=== PATIENT | male | born 1930 | race Caucasian/White ===

== ENCOUNTER 2018-01-14 09:03 | Emergency (ER) | payer MEDICARE, BC ==
--- NOTE | 2018-01-14 09:15 | EDM.PDOC ---
ED HPI GENERAL MEDICAL PROBLEM - General Chief Complaint: Syncope Stated Complaint: [facility] Time Seen by Provider: 01/14/18 09:05 Source of Information: Reports: Patient, EMS, Old Records History Limitations: Reports: No Limitations - History of Present Illness INITIAL COMMENTS - FREE TEXT/NARRATIVE: 87 yo male had a syncopal spell this morning and family called 911. EMS got there and while there patient had another spell while monitored that showed bradycardia to the 30's and hypotension. Fredy has had syncopal spells in the past, apparently these bradycardic spells were not caught on a monitor with these prior attacks. Without tx today's episode has arrived and he is here for evaluation. Family and patient state that prior to the attack today he was sitting in a chair and developed some nausea and was not sure if he was going to vomit or have diarrhea. He went into the bathroom and while sitting on the toilet passed out. 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: Reports: Other (see below) (none) - Related Data Allergies Allergy/AdvReac Type Severity Reaction Status Date / Time No Known Allergies Allergy Verified 01/14/18 09:16 Home Meds: Home Meds ALPRAZolam [Alprazolam] 1 mg PO DAILY 01/14/18 [History] Albuterol Sulfate [Proair Hfa] 8.5 gm IH Q6HR 01/14/18 [History] Aspirin [Adult Low Dose Aspirin EC] 81 mg PO DAILY 01/14/18 [History] Brimonidine/Timolol [Combigan 0.2%/0.5% Ophth Soln] 1 drop TOP BID 01/14/18 [ History] Finasteride 5 mg PO DAILY 01/14/18 [History] Fluticasone Propionate [Flonase] 2 sprays NS DAILY 01/14/18 [History] Loratadine [Claritin] 10 mg PO DAILY 01/14/18 [History] QUEtiapine Fumarate [Quetiapine Fumarate] 75 mg PO BEDTIME 01/14/18 [History] Ubidecarenone [Coenzyme Q-10] 100 mg PO BID 01/14/18 [History] ED ROS GENERAL - Review of Systems Review Of Systems: See Below Constitutional: Reports: Weakness HEENT: Reports: No Symptoms Respiratory: Reports: No Symptoms Cardiovascular: Reports: Blood Pressure Problem (low during episode), Syncope. Denies: Chest Pain GI/Abdominal: Reports: No Symptoms : Reports: No Symptoms Musculoskeletal: Reports: No Symptoms Skin: Reports: No Symptoms Neurological: Reports: Syncope - Physical Exam Exam: See Below Exam Limited By: No Limitations General Appearance: Alert, WD/WN, No Apparent Distress Eye Exam: Bilateral Eye: Normal Inspection Ears: Normal External Exam, Hearing Loss, Other (hearing aids) Nose: Normal Inspection, Normal Mucosa, No Blood Throat/Mouth: Normal Inspection, Normal Lips, Normal Oropharynx, Normal Voice, No Airway Compromise Head Exam: Atraumatic, Normocephalic Neck: Normal Inspection, Supple, Non-Tender Respiratory/Chest: No Respiratory Distress, Lungs Clear, Normal Breath Sounds, No Accessory Muscle Use Cardiovascular: Regular Rate, Rhythm, No Edema GI/Abdominal: Normal Bowel Sounds, Soft, Non-Tender, No Distention Neuro Exam (Abbreviated): Alert, Oriented, CN II-XII Intact, Normal Cognition, No Motor/Sensory Deficits Back Exam: Normal Inspection. No: CVA Tenderness (R), CVA Tenderness (L) Extremities: Normal Inspection, Normal Range of Motion, Non-Tender, No Pedal Edema Psychiatric: Normal Affect, Normal Mood Skin Exam: Warm, Dry, Intact, Normal Color, No Rash EKG INTERPRETATION EKG Date: 01/14/18 Time: 09:20 Rhythm: Other (sinus abhishek) Rate (Beats/Min): 54 Odell: LAD-Left Odell Deviation P-Wave: Present QRS: Normal ST-T: Normal QT: Normal Comparison: NA - No Prior EKG EKG Interpretation Comments: Normal EKG except for the bradycardia. Course - Vital Signs Text/Narrative:: Did fine with ambulation in the ER, wants to go home. Not interested in being considered for pacemaker today. Dr. Henry saw patient. Last Recorded V/S: Last Vital Signs Temp 36.0 C 01/14/18 09:15 Pulse 57 L 01/14/18 10:05 Resp 10 L 01/14/18 10:05 BP 127/65 01/14/18 10:05 Pulse Ox 93 L 01/14/18 10:05 - Orders/Labs/Meds Orders: Active Orders 24 hr Category Date Time Status Cardiac Monitoring [RC] .As Directed Care 01/14/18 09:05 Active EKG Documentation Completion [RC] ASDIRECTED Care 01/14/18 09:06 Active UA W/MICROSCOPIC [URIN] Stat Lab 01/14/18 10:27 Ordered EKG 12 Lead [EK] Routine Ther 01/14/18 09:05 Ordered Labs: Laboratory Tests 01/14/18 01/14/18 01/14/18 Range/Units 09:17 09:17 10:27 WBC 5.8 (4.5-11.0) K/uL RBC 3.70 L (4.30-5.90) M/uL Hgb 12.2 (12.0-15.0) g/dL Hct 37.3 L (40.0-54.0) % MCV 101 H (80-98) fL MCH 33 H (27-31) pg MCHC 33 (32-36) % Plt Count 161 (150-400) K/uL Sodium 140 (140-148) mmol/L Potassium 3.7 (3.6-5.2) mmol/L Chloride 104 (100-108) mmol/L Carbon Dioxide 27 (21-32) mmol/L Anion Gap 8.6 (5.0-14.0) mmol/L BUN 19 H (7-18) mg/dL Creatinine 1.1 (0.8-1.3) mg/dL Est Cr Clr Drug Dosing 46.39 mL/min Estimated GFR (MDRD) > 60 (>60) Glucose 132 H (74-106) mg/dL Calcium 8.3 L (8.5-10.1) mg/dL Troponin I < 0.017 (0.000-0.056) ng/mL Urine Color Yellow Urine Appearance Slightly cloudy Urine pH 5.0 (4.5-8.0) Ur Specific Excello 1.020 (1.008-1.030) Urine Protein Negative (NEGATIVE) mg/dL Urine Glucose (UA) Normal (NEGATIVE) mg/dL Urine Ketones 15 H (NEGATIVE) mg/dL Urine Occult Blood Negative (NEGATIVE) Urine Nitrite Negative (NEGAITVE) Urine Bilirubin Negative (NEGATIVE) Urine Urobilinogen Normal (NORMAL) mg/dL Ur Leukocyte Esterase Negative (NEGATIVE) Urine RBC 0-5 (0-5) Urine WBC 0-5 (0-5) Ur Epithelial Cells Few Amorphous Sediment Not seen Urine Bacteria Not seen Urine Mucus Few Departure - Departure Time of Disposition: 10:53 Disposition: Home, Self-Care 01 Condition: Fair Clinical Impression: Bradycardia Syncope Qualifiers: Syncope type: unspecified Qualified Code(s): R55 - Syncope and collapse - Discharge Information Referrals: PCP,None [Primary Care Provider] - Forms: ED Department Discharge - My Orders Last 24 Hours: My Active Orders 01/14/18 09:05 Cardiac Monitoring [RC] .As Directed EKG 12 Lead [EK] Routine 01/14/18 09:06 EKG Documentation Completion [RC] ASDIRECTED 01/14/18 10:27 UA W/MICROSCOPIC [URIN] Stat - Assessment/Plan Last 24 Hours: My Active Orders 01/14/18 09:05 Cardiac Monitoring [RC] .As Directed EKG 12 Lead [EK] Routine 01/14/18 09:06 EKG Documentation Completion [RC] ASDIRECTED 01/14/18 10:27 UA W/MICROSCOPIC [URIN] Stat
[2018-01-14 10:18] VITALS: BP 127/65
--- NOTE | 2018-01-14 17:23 | PCM.SN ---
- Free Text/Narrative Note: I was asked to see Mitchell today regarding possible admission for pacemaker placement after an episode of syncope. He had some nausea after breakfast and then suddenly passed out while he was on the toilet. He was not passing urine or having a bowel movement at the time. He was evaluated by paramedics and had a second episode of syncope. He did return to essentially baseline mental status quickly after recovering. After his second episode he was connected to the heart monitor equipment and an EKG that appeared to show transient complete heart block was noted. There was A-V node dissociation but there were regular narrow complex QRS complexes noted. While he was in the ambulance on the way to the hospital a 9 need EKG was completed in the showed sinus bradycardia. Since he has been in the hospital he has had the same rhythm with a heart rate in the 50s. He has been up and walking around and feels back to his usual self other than a little weak. Laboratory studies were unremarkable and there is no evidence for ischemia. I suspect that he has sick sinus syndrome with intermittent episodes of A-V dissociation and/or block and a junctional escape rhythm. He has had previous episodes but his last was more than 2 years ago. He is not interested in a pacemaker at this time. He would like to discuss the situation with his primary care for further intervention is undertaken. He is considering whether or not he should see a sheet tester regarding the condition. We did discuss the possibility that this could occur again. It is difficult to predict timing since his last one was quite remote. He will return to the emergency room if he has additional episodes of syncope. Otherwise he will be following up in [address] Durham to review the situation and discuss further management. Jeremie Henry M.D.
== END 2018-01-14 11:22 | disposition home or self-care (01) ==
LOC: JP.ED 09:03
DX: R55 Syncope and collapse (principal); R00.1 Bradycardia, unspecified; Z79.82 Long term (current) use of aspirin; Z79.899 Other long term (current) drug therapy
CPT/HCPCS: 36415; 80048; 81001; 84484; 85027; 93005; 99284-25

== ENCOUNTER 2018-01-22 07:27 | Inpatient (IN) | payer MEDICARE, BC ==
[~2018-01-22 07:27] MED LIST: Bupivacaine 0.5% 50 ML MDV ONE; Lidocaine 1% with EPINEPHrine 1:100,000 50 ML MDV ONE; Meropenem 500 MG SDV ONE
[2018-01-22] MEDS ORDERED: Albuterol/Ipratropium 3.0-0.5 MG/3 ML Neb Soln NEB ONE (08:00)
[2018-01-22] MEDS ORDERED: Midazolam 1 MG/ML 2 ML SDV ONE (08:06)
[2018-01-22] MEDS ORDERED: Propofol 200 MG/20 ML SDV ONE ×2 (08:06→11:06)
[2018-01-22] MEDS ORDERED: fentaNYL 100 MCG/2 ML SDV ONE (08:06)
[2018-01-22] MEDS ORDERED: ceFAZolin 2 GM in Premix Bag 1 BAG IV ONE (08:30)
[2018-01-22] MEDS: Dextrose 5%-Lactated Ringers 1,000 ML IV SCH ×2 (08:35→13:27)
[2018-01-22] MEDS ORDERED: Linezolid 200 MG/100 ML Bag IRR ONE (10:05)
[2018-01-22] MEDS ORDERED: Ondansetron 4 MG/2 ML SDV IVPUSH PRN (13:59)
[2018-01-22] MEDS ORDERED: Acetaminophen/HYDROcodone 325-5 MG Tab PO PRN (13:59)
[2018-01-22] MEDS ORDERED: Acetaminophen 325 MG Tab PO PRN (13:59)
[2018-01-22] MEDS ORDERED: ALPRAZolam 0.5 MG Tab PO PRN (14:00)
[2018-01-22] MEDS ORDERED: Benzonatate 100 MG Cap PO PRN (14:00)
[2018-01-22] MEDS ORDERED: Albuterol 8 GM Inhaler INH PRN (14:01)
[2018-01-22] MEDS ORDERED: diphenhydrAMINE 25 MG Cap PO PRN (14:03)
[2018-01-22] MEDS ORDERED: Loratadine 10 MG Tab PO PRN (14:03)
[2018-01-22] MEDS: Albuterol 8 GM Inhaler INH SCH ×2 (14:51→20:18)
[2018-01-22] MEDS: ceFAZolin 2 GM in Premix Bag 1 BAG IV SCH (18:18)
[2018-01-22] MEDS: Timolol Maleate 0.5% Ophth Soln 5 ML Bottle EYEBOTH SCH (20:14)
[2018-01-22] MEDS: Brimonidine 0.2% Ophth Soln 5 ML Bottle EYEBOTH SCH (20:19)
[2018-01-22] MEDS ORDERED: Finasteride 5 MG Tab PO SCH (21:00)
[2018-01-22] MEDS ORDERED: QUEtiapine 25 MG Tab PO SCH (21:00)
[2018-01-22] MEDS ORDERED: Furosemide 20 MG/2 ML VIAL IVPUSH ONE (22:49)
[2018-01-22] MEDS ORDERED: Labetalol 20 MG/4 ML Syringe IVPUSH PRN (22:50)
[2018-01-22] MEDS ORDERED: Dextrose 5%-Lactated Ringers 1,000 ML IV SCH (23:00)
[2018-01-23] MEDS: ceFAZolin 2 GM in Premix Bag 1 BAG IV SCH ×2 (01:14→08:41)
[2018-01-23] MEDS: Albuterol 8 GM Inhaler INH SCH ×2 (07:13→10:54)
[2018-01-23] MEDS: Timolol Maleate 0.5% Ophth Soln 5 ML Bottle EYEBOTH SCH (08:42)
[2018-01-23] MEDS: Brimonidine 0.2% Ophth Soln 5 ML Bottle EYEBOTH SCH (08:42)
[2018-01-23 08:55] VITALS: BP 111/79
[2018-01-23] MEDS ORDERED: Aspirin 81 MG Tab.EC PO SCH (09:00)
--- NOTE | 2018-01-23 09:38 | PN ---
DATE OF SERVICE: 01/23/2018 SUBJECTIVE: Fredy is postop day 1 following placement of a pacemaker. He has had no pain. Pulse has been ranged from 60-74. He has been afebrile. Blood pressure has been slightly elevated at 2200 and 7:10 it was 166/102, then at 0300, 117/86 and at 07:41, it was 149/87. He had no concerns or questions at time of report. Around 08:30, he felt faint blood pressure, it was 70-80/40-50. Rapid response was called and he did have a syncope episode, pulse remained around 60. Currently, his pulse is 84. Blood pressure has normalized. OBJECTIVE: GENERAL: Fredy Dumas is an 87-year-old male. HEENT: Negative. NECK: Supple. HEART: Regular rate and rhythm. LUNGS: Pacemaker incision site dressing was removed for Joon Chavez MD. Steri-Strips intact. No hematoma. Cerumen noted. EXTREMITIES: Without peripheral edema. ASSESSMENT: Insertion of transcutaneous dual chamber pacemaker, date 01/22/2018. PLAN: 1. Consult with Dr. Taylor. 2. Continue Tylenol for pain. 3. We will hold on discharge today. We will evaluate p.r.n. or in a.m.. Wilda Nance PA-C /[id number]
--- NOTE | 2018-01-23 10:11 | PCM.CONS ---
H&P History of Present Illness - General Date of Service: 01/23/18 Admit Problem/Dx: Admission Diagnosis/Problem Admission Diagnosis/Problem Implantation of cardiac pacemaker Source of Information: Patient, Family, Provider, RN Notes Reviewed History Limitations: Reports: No Limitations - History of Present Illness Initial Comments - Free Text/Narative: This patient is an 87-year-old gentleman who I been asked to see by Dr. Chavez for further suggestions concerning evaluation and management of a syncopal episode which occurred this morning. He was admitted yesterday and underwent placement of a permanent pacemaker for management of symptomatic bradycardia. He felt well this morning when he awoke and did well on a walk out in the hallway. After he returned to his room he sat down and began to feel some cramping pain in his abdomen and urgency to have a bowel movement. During this period of time he also became lightheaded and more weak. He put on his call light and when the nurse arrived to his room was noted to be very weak and lightheaded. With some assistance she was able to get him back into bed but at about that time he became unresponsive. Heart rate remained within stable range showing adequate pacemaker function. Blood pressure did drop significantly but within a few minutes improved to normal range. He reports that he is had several similar episodes in the past, often occurring when he is on the toilet. - Related Data Allergies/Adverse Reactions: Allergies Allergy/AdvReac Type Severity Reaction Status Date / Time No Known Allergies Allergy Verified 01/14/18 09:16 Home Medications: Home Meds ALPRAZolam [Alprazolam] 1 mg PO BID PRN 01/14/18 [History] Albuterol Sulfate [Proair Hfa] 8.5 gm IH Q6HR 01/14/18 [History] Aspirin [Adult Low Dose Aspirin EC] 81 mg PO DAILY 01/14/18 [History] Brimonidine/Timolol [Combigan 0.2%/0.5% Ophth Soln] 1 drop TOP BID 01/14/18 [ History] Finasteride 5 mg PO DAILY 01/14/18 [History] Fluticasone Propionate [Flonase] 2 sprays NS DAILY 01/14/18 [History] Loratadine [Claritin] 10 mg PO DAILY 01/14/18 [History] QUEtiapine Fumarate [Quetiapine Fumarate] 75 mg PO BEDTIME 01/14/18 [History] Ubidecarenone [Coenzyme Q-10] 100 mg PO BID 01/14/18 [History] Benzonatate 100 mg PO TID 01/21/18 [History] diphenhydrAMINE [Benadryl] 25 mg PO BEDTIME PRN 01/21/18 [History] Acetaminophen [Tylenol] 650 mg PO Q4H PRN #50 tablet 01/23/18 [Rx] Past Medical History HEENT History: Reports: Other (See Below) Other HEENT History: Tinnitus bilateral Cardiovascular History: Reports: High Cholesterol Respiratory History: Reports: Asthma Gastrointestinal History: Reports: Colon Polyp, Other (See Below) Other Gastrointestinal History: gluten-sensitive enteropathy Genitourinary History: Reports: BPH, Prostate Disorder Neurological History: Reports: Other (See Below) Other Neuro History: hydrocephalus. memory change Psychiatric History: Reports: Anxiety, Depression, OCD Endocrine/Metabolic History: Reports: Other (See Below) Other Endocrine/Metabolic History: hyperglycemia - Infectious Disease History Infectious Disease History: Reports: Measles, Mumps, Other (See Below) Other Infectious Disease History: Lymes, Anaplasmosis - Past Surgical History HEENT Surgical History: Reports: Tonsillectomy Cardiovascular Surgical History: Reports: None Respiratory Surgical History: Reports: None GI Surgical History: Reports: Appendectomy, Colonoscopy Neurological Surgical History: Reports: Other (See Below) Other Neurological Surgeries/Procedures: S/P ventriculoperitoneal shunt Social & Family History - Family History Family Medical History: Noncontributory - Tobacco Use Smoking Status *Q: Never Smoker - Caffeine Use Caffeine Use: Reports: Coffee - Recreational Drug Use Recreational Drug Use: No H&P Review of Systems - Review of Systems: Review Of Systems: See Below General: Denies: Fever, Chills, Weakness Pulmonary: Reports: No Symptoms Cardiovascular: Reports: Lightheadedness, Syncope. Denies: Chest Pain, Palpitations, Dyspnea on Exertion, Orthopnea, PND, Edema Gastrointestinal: Reports: No Symptoms Genitourinary: Reports: No Symptoms Exam - Exam Exam: See Below - Vital Signs Vital Signs: Last Vital Signs Temp 96.4 F 01/23/18 07:41 Pulse 77 01/23/18 08:48 Resp 16 01/23/18 08:48 BP 111/79 01/23/18 08:48 Pulse Ox 99 01/23/18 08:48 Weight: 151 lb - Exam General: Alert, Oriented, Cooperative Neck: Supple, Trachea Midline, +2 Carotid Pulse wo Bruit Lungs: Clear to Auscultation, Normal Respiratory Effort Cardiovascular: Regular Rate, Regular Rhythm, Normal S1, Normal S2. No: Systolic Murmur, Diastolic Murmur GI/Abdominal Exam: Soft, Non-Tender, No Organomegaly, No Distention Back Exam: Normal Inspection, Full Range of Motion Extremities: Non-Tender, No Pedal Edema Skin: Warm, Dry - Patient Data Lab Results Last 24 hrs: Laboratory Results - last 24 hr 01/23/18 Range/Units 04:20 Sodium 138 L (140-148) mmol/L Potassium 3.7 (3.6-5.2) mmol/L Chloride 102 (100-108) mmol/L Carbon Dioxide 30 (21-32) mmol/L Anion Gap 9.7 (5.0-14.0) mmol/L BUN 12 (7-18) mg/dL Creatinine 0.8 (0.8-1.3) mg/dL Est Cr Clr Drug Dosing 64.13 mL/min Estimated GFR (MDRD) > 60 (>60) Glucose 107 H (74-106) mg/dL Calcium 8.5 (8.5-10.1) mg/dL Phosphorus 3.2 (2.5-4.9) mg/dL Magnesium 2.0 (1.8-2.4) mg/dL Result Diagrams: 01/23/18 04:20 Consult PN Assessment/Plan Procedures: Procedures ASSAY OF TROPONIN QUANT (01/14/18) CO/MEMBANE DIFFUSE CAPACITY (12/21/14) COMPLETE CBC AUTOMATED (01/14/18) ELECTROCARDIOGRAM TRACING (01/14/18) EMERGENCY DEPT VISIT (01/14/18) EMERGENCY DEPT VISIT (09/21/13) EMERGENCY DEPT VISIT (09/21/13) EVALUATION OF WHEEZING (12/21/14) METABOLIC PANEL TOTAL CA (01/14/18) PULM FUNCTION TEST BY GAS (12/21/14) ROUTINE VENIPUNCTURE (01/14/18) URINALYSIS AUTO W/SCOPE (01/14/18) (1) Vasovagal syncope SNOMED Code(s): 617464540 Code(s): R55 - SYNCOPE AND COLLAPSE (2) Bradycardia SNOMED Code(s): 82885120 Code(s): R00.1 - BRADYCARDIA, UNSPECIFIED (3) Status post placement of cardiac pacemaker SNOMED Code(s): 941037869, 579826861, 718355023 Code(s): Z95.0 - PRESENCE OF CARDIAC PACEMAKER Problem List Initiated/Reviewed/Updated: Yes Plan: ASSESSMENT AND RECOMMENDATIONS VASOVAGAL SYNCOPE-symptoms and episode this morning very consistent with a vagal event. He has a history of similar events over the past few years. No evidence of significant dysrhythmia or seizure activity. -No further evaluation or intervention required at this time STATUS POST PERMANENT PACEMAKER PLACEMENT -Postop care per Dr. Chavez Requesting Provider: NATALEE Date Consult Requested: 01/23/18 Reason for Consult: Syncopal episode Patient History Reviewed: Yes
--- NOTE | 2018-01-28 12:52 | OR ---
DATE OF PROCEDURE: 01/22/2018 PREOPERATIVE DIAGNOSIS: Sick sinus syndrome with intermittent third-degree AV block. POSTOPERATIVE DIAGNOSIS: Sick sinus syndrome with intermittent third-degree AV block. OPERATIVE PROCEDURE: Insertion of transvenous dual-chamber cardiac pacemaker (28659). ANESTHESIA: Local plus IV sedation. INDICATION FOR PROCEDURE: The patient presents with what appears to be a symptomatic bradycardia. After preoperative evaluation and discussion, he wished to proceed with a pacemaker placement. Potential risks of the procedure including bleeding, infection, vascular or pulmonary injury, possible malfunction of the pacemaker system as well as the possibility of cardiopulmonary, septic, or hemorrhagic complications leading to were discussed, and the patient wishes to proceed. DETAILS OF PROCEDURE: The patient was taken to the operating room and placed in the supine position. After IV sedation was administered, the upper chest and neck areas were prepped and draped. The left subclavian area was anesthetized with 1% lidocaine mixed with Marcaine, and the left subclavian vein cannulated. Guidewire was manipulated from that point into the superior vena cava. Some additional local was then injected. A transverse infraclavicular incision was made and carried down through the skin and subcutaneous tissue and through the pectoralis major fascia. A pocket in that plain was then constructed. A second wire was then placed on the subclavian vein into the superior vena cava. The Medtronic leads, both of which were screw-in type leads were then placed over the introducers and peel-away catheters. The entire apparatus was compatible with subsequent MRI examination. The right atrial lead was Medtronic model number [id number], and right ventricular lead was Medtronic model number [id number]. After both leads were initially placed, the third location tested for the right atrial lead was satisfactory with a stimulation threshold of 0.4 V, impedance of 469 ohms, and R-wave sensing of 2.3 millivolts. The atrial lead was then similarly placed and the first location that was tested was satisfactory with a voltage stimulation threshold of 0.9 V, impedance of 653 ohms, and P-wave sensing of 5.4 millivolts. Both leads were tested with 10 V and no diaphragmatic pacing was noted. The Medtronic pulse generator, model number [id number] was then fixed to the leads and immediate adequate pacing and sensing functions were confirmed. The pocket which had been irrigated with a Zyvox-containing saline solution was once again irrigated, and the sleeves were sutured in position with some 3-0 Vicryl stitch were then placed in the pocket, which was then closed with 2 layers of 3-0 Vicryl stitch deep and a 4-0 Vicryl subcuticular stitch. Dressing was applied. The patient was taken to the recovery room in a satisfactory condition. Joon Chavez MD /[id number]
== END 2018-01-23 11:14 | disposition home or self-care (01) | DRG 243 ==
LOC: JP.SDS 07:27 → JP.SDSSCHI 07:27 → EDSTATUS 08:30 → JP.2SS 11:30
PROVIDERS: ADMIT Surgery; ATTEND Surgery
PROC: 0JH606Z Insertion of Pacemaker, Dual Chamber into Chest Subcutaneous Tissue and Fascia, Open Approach (ICD-10-PCS; principal; 2018-01-22)
PROC: 02H63JZ Insertion of Pacemaker Lead into Right Atrium, Percutaneous Approach (ICD-10-PCS; 2018-01-22)
PROC: 02HK3JZ Insertion of Pacemaker Lead into Right Ventricle, Percutaneous Approach (ICD-10-PCS; 2018-01-22)
DX: I49.5 Sick sinus syndrome (principal); I44.2 Atrioventricular block, complete; N13.8 Other obstructive and reflux uropathy; G91.9 Hydrocephalus, unspecified; E78.00 Pure hypercholesterolemia, unspecified; J45.909 Unspecified asthma, uncomplicated; F32.9 Major depressive disorder, single episode, unspecified; F41.9 Anxiety disorder, unspecified; N40.1 Benign prostatic hyperplasia with lower urinary tract symptoms; R73.9 Hyperglycemia, unspecified; Z98.2 Presence of cerebrospinal fluid drainage device; Z79.82 Long term (current) use of aspirin; R55 Syncope and collapse; R00.1 Bradycardia, unspecified
CPT/HCPCS: 36415; 80048; 83735; 84100; 94664; 94762; A9270-GY; C1898; J0690; J1940; J2020; J2185; J2250; J2704; J3010; J3490; J7042; J7620

== ENCOUNTER 2018-01-23 18:29 | Emergency (ER) | payer MEDICARE, BC ==
--- NOTE | 2018-01-23 20:10 | EDM.PDOC ---
ED HPI GENERAL MEDICAL PROBLEM - General Chief Complaint: Syncope Stated Complaint: PACE MAKER PLACEMENT YESTERDAY Time Seen by Provider: 01/23/18 19:55 Source of Information: Reports: Patient, Family, Old Records History Limitations: Reports: No Limitations - History of Present Illness INITIAL COMMENTS - FREE TEXT/NARRATIVE: 87 yo male went home from the hospital this morning after pacemaker placement. He had a spell this morning before discharge of transient low BP that resolved on its own not associated with bradycardia. About supper time today he developed abdominal pain that was followed by a brief syncopal spell. EMS was called and they found him awake with stable vitals upon their arrival. Fredy says that around the time of his syncope if anyone touched him he experienced severe pain. He also demonstrated a strange breathing pattern at the time. Onset: Today Onset Date: 01/23/18 Onset Time: 17:50 Duration: Minutes: (2-3), Resolved Prior to Arrival Location: Reports: Generalized Quality: Reports: Other (resolved abdominal pain associated with a normal stool. 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: Reports: Other (see below) (none) - Related Data Allergies Allergy/AdvReac Type Severity Reaction Status Date / Time No Known Allergies Allergy Verified 01/14/18 09:16 Home Meds: Home Meds ALPRAZolam [Alprazolam] 1 mg PO BID PRN 01/14/18 [History] Albuterol Sulfate [Proair Hfa] 8.5 gm IH Q6HR 01/14/18 [History] Aspirin [Adult Low Dose Aspirin EC] 81 mg PO DAILY 01/14/18 [History] Brimonidine/Timolol [Combigan 0.2%/0.5% Ophth Soln] 1 drop TOP BID 01/14/18 [ History] Finasteride 5 mg PO DAILY 01/14/18 [History] Fluticasone Propionate [Flonase] 2 sprays NS DAILY 01/14/18 [History] Loratadine [Claritin] 10 mg PO DAILY 01/14/18 [History] QUEtiapine Fumarate [Quetiapine Fumarate] 75 mg PO BEDTIME 01/14/18 [History] Ubidecarenone [Coenzyme Q-10] 100 mg PO BID 01/14/18 [History] Benzonatate 100 mg PO TID 01/21/18 [History] diphenhydrAMINE [Benadryl] 25 mg PO BEDTIME PRN 01/21/18 [History] Acetaminophen [Tylenol] 650 mg PO Q4H PRN #50 tablet 01/23/18 [Rx] Past Medical History HEENT History: Reports: Other (See Below) Other HEENT History: Tinnitus bilateral Cardiovascular History: Reports: High Cholesterol Respiratory History: Reports: Asthma Gastrointestinal History: Reports: Colon Polyp, Other (See Below) Other Gastrointestinal History: gluten-sensitive enteropathy Genitourinary History: Reports: BPH, Prostate Disorder Neurological History: Reports: Other (See Below) Other Neuro History: hydrocephalus. memory change Psychiatric History: Reports: Anxiety, Depression, OCD Endocrine/Metabolic History: Reports: Other (See Below) Other Endocrine/Metabolic History: hyperglycemia - Infectious Disease History Infectious Disease History: Reports: Measles, Mumps, Other (See Below) Other Infectious Disease History: Lymes, Anaplasmosis - Past Surgical History HEENT Surgical History: Reports: Tonsillectomy Cardiovascular Surgical History: Reports: Pacer Respiratory Surgical History: Reports: None GI Surgical History: Reports: Appendectomy, Colonoscopy Neurological Surgical History: Reports: Other (See Below) Other Neurological Surgeries/Procedures: S/P ventriculoperitoneal shunt Social & Family History - Family History Family Medical History: Noncontributory - Tobacco Use Smoking Status *Q: Never Smoker - Caffeine Use Caffeine Use: Reports: Coffee - Recreational Drug Use Recreational Drug Use: No ED ROS GENERAL - Review of Systems Review Of Systems: See Below Constitutional: Reports: No Symptoms HEENT: Reports: No Symptoms Respiratory: Reports: No Symptoms Cardiovascular: Reports: Syncope GI/Abdominal: Reports: Abdominal Pain. Denies: Black Stool, Bloody Stool, Constipation, Diarrhea, Distension, Flatus, Hematemesis, Hematochezia, Melena, Nausea, Vomiting : Reports: No Symptoms Musculoskeletal: Reports: Neck Pain (neck and back felt like they were "locking up" at the time, now resolved. ) Skin: Reports: No Symptoms Neurological: Reports: Syncope - Physical Exam Exam: See Below Exam Limited By: No Limitations General Appearance: Alert, WD/WN, No Apparent Distress Eye Exam: Bilateral Eye: Normal Inspection Ears: Normal External Exam, Normal Canal, Hearing Grossly Normal Nose: Normal Inspection, Normal Mucosa, No Blood Throat/Mouth: Normal Inspection, Normal Lips, Normal Oropharynx, Normal Voice, No Airway Compromise Head Exam: Atraumatic, Normocephalic Neck: Normal Inspection Respiratory/Chest: No Respiratory Distress, Lungs Clear, Normal Breath Sounds, No Accessory Muscle Use Cardiovascular: Regular Rate, Rhythm, No Edema GI/Abdominal: Normal Bowel Sounds, Soft, Non-Tender, No Distention Neuro Exam (Abbreviated): Alert, Oriented, CN II-XII Intact, Normal Cognition, No Motor/Sensory Deficits Back Exam: Normal Inspection. No: CVA Tenderness (R), CVA Tenderness (L) Extremities: Normal Inspection, Normal Range of Motion, Non-Tender, No Pedal Edema Psychiatric: Normal Affect, Normal Mood Skin Exam: Warm, Dry, Intact, Normal Color, No Rash Course - Vital Signs Text/Narrative:: Temp borderline elevated, ? source. Patient has no sx's. BP running higher than usual tonight, not sure why. Again, is asymptomatic. Last Recorded V/S: Last Vital Signs Temp 37.6 C 01/23/18 21:57 Pulse 84 01/23/18 21:54 Resp 13 01/23/18 21:54 BP 178/83 H 01/23/18 21:54 Pulse Ox 96 01/23/18 21:54 Orthostatic Blood Pressure [ 185/96 Standing] Orthostatic Blood Pressure [ 178/89 Sitting] Orthostatic Blood Pressure [ 189/87 Supine] - Orders/Labs/Meds Orders: Active Orders 24 hr Category Date Time Status Cardiac Monitoring [RC] .As Directed Care 01/23/18 19:54 Active Orthostatic Vital Signs [RC] ASDIRECTED Care 01/23/18 19:54 Active UA W/MICROSCOPIC [URIN] Stat Lab 01/23/18 20:25 Ordered Sodium Chloride 0.9% [Saline Flush] Med 01/23/18 21:00 Active 10 ml FLUSH ASDIRECTED PRN Saline Lock Insert [OM.PC] Routine Oth 01/23/18 21:00 Ordered Medication Orders Sodium Chloride (Saline Flush) 10 ml FLUSH ASDIRECTED PRN PRN Reason: Keep Vein Open Last Admin: 01/23/18 21:26 Dose: 10 ml Labs: Laboratory Tests 01/23/18 01/23/18 01/23/18 Range/Units 20:12 20:12 20:12 WBC 7.9 (4.5-11.0) K/uL RBC 3.99 L (4.30-5.90) M/uL Hgb 13.2 (12.0-15.0) g/dL Hct 39.7 L (40.0-54.0) % MCV 100 H (80-98) fL MCH 33 H (27-31) pg MCHC 33 (32-36) % Plt Count 171 (150-400) K/uL Troponin I 0.023 (0.000-0.056) ng/mL C-Reactive Protein 2.29 H (0.0-0.3) mg/dL TSH, Ultra Sensitive (0.358-3.740) uIU/mL Urine Color Urine Appearance Urine pH (4.5-8.0) Ur Specific [place] (1.008-1.030) Urine Protein (NEGATIVE) mg/dL Urine Glucose (UA) (NEGATIVE) mg/dL Urine Ketones (NEGATIVE) mg/dL Urine Occult Blood (NEGATIVE) Urine Nitrite (NEGAITVE) Urine Bilirubin (NEGATIVE) Urine Urobilinogen (NORMAL) mg/dL Ur Leukocyte Esterase (NEGATIVE) Urine RBC (0-5) Urine WBC (0-5) Ur Epithelial Cells Amorphous Sediment Urine Bacteria Urine Mucus Ethyl Alcohol mg/dL 01/23/18 01/23/18 01/23/18 Range/Units 20:25 21:01 21:07 WBC (4.5-11.0) K/uL RBC (4.30-5.90) M/uL Hgb (12.0-15.0) g/dL Hct (40.0-54.0) % MCV (80-98) fL MCH (27-31) pg MCHC (32-36) % Plt Count (150-400) K/uL Troponin I (0.000-0.056) ng/mL C-Reactive Protein (0.0-0.3) mg/dL TSH, Ultra Sensitive 2.610 (0.358-3.740) uIU/mL Urine Color Yellow Urine Appearance Clear Urine pH 7.0 (4.5-8.0) Ur Specific [place] 1.010 (1.008-1.030) Urine Protein Negative (NEGATIVE) mg/dL Urine Glucose (UA) Normal (NEGATIVE) mg/dL Urine Ketones Negative (NEGATIVE) mg/dL Urine Occult Blood Negative (NEGATIVE) Urine Nitrite Negative (NEGAITVE) Urine Bilirubin Negative (NEGATIVE) Urine Urobilinogen Normal (NORMAL) mg/dL Ur Leukocyte Esterase Negative (NEGATIVE) Urine RBC 0-5 (0-5) Urine WBC 0-5 (0-5) Ur Epithelial Cells Few Amorphous Sediment Not seen Urine Bacteria Not seen Urine Mucus Not seen Ethyl Alcohol < 3 mg/dL Meds: Medications Generic Name Dose Route Start Last Admin Trade Name Freq PRN Reason Stop Dose Admin Sodium Chloride 10 ml 01/23/18 21:00 01/23/18 21:26 Saline Flush FLUSH 10 ml ASDIRECTED PRN Administration Keep Vein Open Discontinued Medications Generic Name Dose Route Start Last Admin Trade Name Freq PRN Reason Stop Dose Admin Lorazepam 0.25 mg 01/23/18 21:03 01/23/18 21:26 Ativan IVPUSH 01/23/18 21:04 Not Given ONETIME ONE Lorazepam 0.5 mg 01/23/18 21:08 01/23/18 21:26 Ativan IVPUSH 01/23/18 21:09 0.5 mg ONETIME ONE Administration Departure - Departure Time of Disposition: 22:04 Disposition: Home, Self-Care 01 Condition: Fair Clinical Impression: Syncope Qualifiers: Syncope type: unspecified Qualified Code(s): R55 - Syncope and collapse HTN (hypertension) Qualifiers: Hypertension type: unspecified Qualified Code(s): I10 - Essential (primary) hypertension - Discharge Information Referrals: PCP,None [Primary Care Provider] - Forms: ED Department Discharge - My Orders Last 24 Hours: My Active Orders 01/23/18 19:54 Cardiac Monitoring [RC] .As Directed Orthostatic Vital Signs [RC] ASDIRECTED 01/23/18 20:25 UA W/MICROSCOPIC [URIN] Stat 01/23/18 21:00 Sodium Chloride 0.9% [Saline Flush] 10 ml FLUSH ASDIRECTED PRN Saline Lock Insert [OM.PC] Routine - Assessment/Plan Last 24 Hours: My Active Orders 01/23/18 19:54 Cardiac Monitoring [RC] .As Directed Orthostatic Vital Signs [RC] ASDIRECTED 01/23/18 20:25 UA W/MICROSCOPIC [URIN] Stat 01/23/18 21:00 Sodium Chloride 0.9% [Saline Flush] 10 ml FLUSH ASDIRECTED PRN Saline Lock Insert [OM.PC] Routine
[2018-01-23] MEDS ORDERED: Sodium Chloride 0.9% 10 ML Syringe FLUSH PRN (21:00)
[2018-01-23] MEDS ORDERED: LORazepam 2 MG/ML SDV IVPUSH ONE ×2 (21:03→21:08)
[2018-01-23 21:55] VITALS: BP 178/83
== END 2018-01-23 22:25 | disposition home or self-care (01) ==
LOC: JP.ED 18:29
DX: R55 Syncope and collapse (principal); I10 Essential (primary) hypertension; E78.00 Pure hypercholesterolemia, unspecified; J45.909 Unspecified asthma, uncomplicated; Z79.82 Long term (current) use of aspirin; Z79.899 Other long term (current) drug therapy
CPT/HCPCS: 36415; 81001; 84443; 84484; 85027; 86140; 96374; 99284; G0480; J2060; J7050

== ENCOUNTER 2018-01-24 11:34 | Emergency (ER) | payer MEDICARE, BC ==
[2018-01-24 11:49] VITALS: BP 146/67
--- NOTE | 2018-01-24 14:41 | EDM.PDOC ---
ED HPI GENERAL MEDICAL PROBLEM - General Chief Complaint: Syncope Stated Complaint: PACEMAKER Time Seen by Provider: 01/24/18 11:50 Source of Information: Reports: Patient History Limitations: Reports: No Limitations - History of Present Illness INITIAL COMMENTS - FREE TEXT/NARRATIVE: pt was seen last nite after having an episode of syncope. His pacemaker was not evaluated and he was seen by Dr barajas today who wanted the pacemaker interigated. Onset: Other (pt had a syncopal episode last nite. ) Duration: Hour(s): Location: Reports: Head, Chest Associated Symptoms: Reports: No Other Symptoms, Syncope - Related Data Allergies Allergy/AdvReac Type Severity Reaction Status Date / Time No Known Allergies Allergy Verified 01/24/18 11:49 Home Meds: Home Meds ALPRAZolam [Alprazolam] 1 mg PO BID PRN 01/14/18 [History] Albuterol Sulfate [Proair Hfa] 8.5 gm IH Q6HR 01/14/18 [History] Aspirin [Adult Low Dose Aspirin EC] 81 mg PO DAILY 01/14/18 [History] Brimonidine/Timolol [Combigan 0.2%/0.5% Ophth Soln] 1 drop TOP BID 01/14/18 [ History] Finasteride 5 mg PO DAILY 01/14/18 [History] Fluticasone Propionate [Flonase] 2 sprays NS DAILY 01/14/18 [History] Loratadine [Claritin] 10 mg PO DAILY 01/14/18 [History] QUEtiapine Fumarate [Quetiapine Fumarate] 75 mg PO BEDTIME 01/14/18 [History] Ubidecarenone [Coenzyme Q-10] 100 mg PO BID 01/14/18 [History] Benzonatate 100 mg PO TID 01/21/18 [History] diphenhydrAMINE [Benadryl] 25 mg PO BEDTIME PRN 01/21/18 [History] Acetaminophen [Tylenol] 650 mg PO Q4H PRN #50 tablet 01/23/18 [Rx] Past Medical History HEENT History: Reports: Other (See Below) Other HEENT History: Tinnitus bilateral Cardiovascular History: Reports: High Cholesterol Respiratory History: Reports: Asthma Gastrointestinal History: Reports: Colon Polyp, Other (See Below) Other Gastrointestinal History: gluten-sensitive enteropathy Genitourinary History: Reports: BPH, Prostate Disorder Neurological History: Reports: Other (See Below) Other Neuro History: hydrocephalus. memory change Psychiatric History: Reports: Anxiety, Depression, OCD Endocrine/Metabolic History: Reports: Other (See Below) Other Endocrine/Metabolic History: hyperglycemia - Infectious Disease History Infectious Disease History: Reports: Measles, Mumps, Other (See Below) Other Infectious Disease History: Lymes, Anaplasmosis - Past Surgical History HEENT Surgical History: Reports: Tonsillectomy Cardiovascular Surgical History: Reports: Pacer Respiratory Surgical History: Reports: None GI Surgical History: Reports: Appendectomy, Colonoscopy Neurological Surgical History: Reports: Other (See Below) Other Neurological Surgeries/Procedures: S/P ventriculoperitoneal shunt Social & Family History - Family History Family Medical History: Noncontributory - Tobacco Use Smoking Status *Q: Never Smoker - Caffeine Use Caffeine Use: Reports: Coffee - Recreational Drug Use Recreational Drug Use: No ED ROS GENERAL - Review of Systems Review Of Systems: See Below Constitutional: Reports: No Symptoms HEENT: Reports: No Symptoms Respiratory: Reports: No Symptoms Cardiovascular: Reports: No Symptoms Endocrine: Reports: No Symptoms GI/Abdominal: Reports: No Symptoms : Reports: No Symptoms Musculoskeletal: Reports: No Symptoms Skin: Reports: No Symptoms - Physical Exam Exam: See Below Text/Narrative:: pt arrived with a history of syncope prior to leaving the hosp and an episode of syncope last nite. Exam Limited By: No Limitations General Appearance: Alert, No Apparent Distress, Anxious, Other (pupils equal and reactive. ) Ears: Normal TMs Nose: Normal Inspection Throat/Mouth: Normal Inspection Head Exam: Atraumatic Neck: Normal Inspection Respiratory/Chest: No Respiratory Distress Cardiovascular: Regular Rate, Rhythm, Other (pt is not using his pacemaker at this time. ) GI/Abdominal: Soft, Non-Tender (Male) Exam: Deferred Rectal (Males) Exam: Deferred Neuro Exam (Abbreviated): Alert, Oriented, Normal Cognition Back Exam: Normal Inspection Extremities: Normal Inspection Psychiatric: Normal Affect Course - Vital Signs Last Recorded V/S: Last Vital Signs Temp 36.2 C 01/24/18 11:48 Pulse 71 01/24/18 11:48 Resp 16 01/24/18 11:48 BP 146/67 H 01/24/18 11:48 Pulse Ox 98 01/24/18 11:48 - Orders/Labs/Meds Orders: Active Orders 24 hr Category Date Time Status Orthostatic Vital Signs [RC] ASDIRECTED Care 01/24/18 12:27 Active - Re-Assessments/Exams Free Text/Narrative Re-Assessment/Exam: 01/24/18 14:43 The pacemaker was interigated with the medtronic equipment and everything is working well. I feel is episodes are vasovagal. A long discussion was held with the pt regarding how to prevent falls. Departure - Departure Time of Disposition: 14:45 Disposition: Home, Self-Care 01 Condition: Fair Clinical Impression: Vasovagal episode - Discharge Information Referrals: PCP,None [Primary Care Provider] - Care Plan Goals: rtc if problems, fall prevention instructions, follow up with Dr barajas. - My Orders Last 24 Hours: My Active Orders 01/24/18 12:27 Orthostatic Vital Signs [RC] ASDIRECTED - Assessment/Plan Last 24 Hours: My Active Orders 01/24/18 12:27 Orthostatic Vital Signs [RC] ASDIRECTED
== END 2018-01-24 15:08 | disposition home or self-care (01) ==
LOC: JP.ED 11:34
DX: R55 Syncope and collapse (principal); E78.00 Pure hypercholesterolemia, unspecified; J45.909 Unspecified asthma, uncomplicated; Z79.899 Other long term (current) drug therapy
CPT/HCPCS: 99284

== ENCOUNTER 2018-02-27 18:16 | Observation (INO) | payer MEDICARE, BC ==
--- NOTE | 2018-02-27 18:53 | EDM.PDOC ---
ED HPI GENERAL MEDICAL PROBLEM - General Chief Complaint: Behavioral/Psych Stated Complaint: MED VIA [facility] Time Seen by Provider: 02/27/18 18:40 Source of Information: Reports: Patient, Old Records, RN History Limitations: Reports: No Limitations - History of Present Illness INITIAL COMMENTS - FREE TEXT/NARRATIVE: 87 yo male was sent via EMS by family to the hospital apparently for acute confusion. Patient has been here in the recent past for comparison to today's condition. Fredy is fully alert here and has stable vital signs. His history is a bit rambling today, but not that different from the last time he was seen here. Family is reportedly on the way, but not yet here when patient is first seen. Family is now here and describes that Fredy forgot his meds at home and was away to [place] for an appt his had with ENT there. He didn't sleep well for 2 nights due to missing his sleeping meds. On his way home he made a few driving mistakes which is not like him. The thought her was mumbling and repeating himself in the car on the way home from [place], but admits her hearing is not good. Tonight before coming in he was unable to write his own name and was talking nonsensically. These sx's are now gone in the ER. Onset: Today Onset Date: 02/27/18 Duration: Other (unknown) Quality: Reports: Other (no pain) Severity: Moderate Improves with: Reports: Other (? 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) (none) - Related Data Allergies Allergy/AdvReac Type Severity Reaction Status Date / Time No Known Allergies Allergy Verified 01/24/18 11:49 Home Meds: Home Meds ALPRAZolam [Alprazolam] 1 mg PO BID PRN 01/14/18 [History] Albuterol Sulfate [Proair Hfa] 8.5 gm IH Q6HR 01/14/18 [History] Aspirin [Adult Low Dose Aspirin EC] 81 mg PO DAILY 01/14/18 [History] Brimonidine/Timolol [Combigan 0.2%/0.5% Ophth Soln] 1 drop TOP BID 01/14/18 [ History] Finasteride 5 mg PO DAILY 01/14/18 [History] Fluticasone Propionate [Flonase] 2 sprays NS DAILY 01/14/18 [History] Loratadine [Claritin] 10 mg PO DAILY 01/14/18 [History] QUEtiapine Fumarate [Quetiapine Fumarate] 75 mg PO BEDTIME 01/14/18 [History] Ubidecarenone [Coenzyme Q-10] 100 mg PO BID 01/14/18 [History] Benzonatate 100 mg PO TID 01/21/18 [History] diphenhydrAMINE [Benadryl] 25 mg PO BEDTIME PRN 01/21/18 [History] Acetaminophen [Tylenol] 650 mg PO Q4H PRN #50 tablet 01/23/18 [Rx] Past Medical History HEENT History: Reports: Other (See Below) Other HEENT History: Tinnitus bilateral Cardiovascular History: Reports: High Cholesterol, Pacemaker Respiratory History: Reports: Asthma Gastrointestinal History: Reports: Colon Polyp, Other (See Below) Other Gastrointestinal History: gluten-sensitive enteropathy Genitourinary History: Reports: BPH, Prostate Disorder Neurological History: Reports: Other (See Below) Other Neuro History: hydrocephalus. memory change Psychiatric History: Reports: Anxiety, Depression, OCD Endocrine/Metabolic History: Reports: Other (See Below) Other Endocrine/Metabolic History: hyperglycemia - Infectious Disease History Infectious Disease History: Reports: Chicken Pox Other Infectious Disease History: Lymes, Anaplasmosis - Past Surgical History HEENT Surgical History: Reports: Tonsillectomy Cardiovascular Surgical History: Reports: Pacer Respiratory Surgical History: Reports: None GI Surgical History: Reports: Appendectomy, Colonoscopy Neurological Surgical History: Reports: Other (See Below) Other Neurological Surgeries/Procedures: S/P ventriculoperitoneal shunt Social & Family History - Family History Family Medical History: Noncontributory - Tobacco Use Smoking Status *Q: Never Smoker Second Hand Smoke Exposure: Yes - Caffeine Use Caffeine Use: Reports: Coffee - Recreational Drug Use Recreational Drug Use: No ED ROS GENERAL - Review of Systems Review Of Systems: See Below Constitutional: Reports: No Symptoms HEENT: Reports: No Symptoms Respiratory: Reports: No Symptoms Cardiovascular: Reports: No Symptoms GI/Abdominal: Reports: No Symptoms : Reports: No Symptoms Musculoskeletal: Reports: No Symptoms Skin: Reports: No Symptoms Neurological: Reports: Confusion (now ? resolved) Psychiatric: Reports: No Symptoms ED EXAM, NEURO - Physical Exam Exam: See Below Exam Limited By: No Limitations General Appearance: Alert, WD/WN, No Apparent Distress Eye Exam: Bilateral Eye: Normal Inspection, PERRL Ears: Normal External Exam, Normal Canal, Hearing Grossly Normal, Normal TMs Nose: Normal Inspection, Normal Mucosa, No Blood Throat/Mouth: Normal Inspection, Normal Lips, Normal Oropharynx, Normal Voice, No Airway Compromise Head Exam: Atraumatic, Normocephalic Neck: Normal Inspection, Supple Respiratory/Chest: No Respiratory Distress, Lungs Clear, Normal Breath Sounds, No Accessory Muscle Use Cardiovascular: Regular Rate, Rhythm, No Edema GI/Abdominal: Normal Bowel Sounds, Soft, Non-Tender, No Distention Neurological: Alert, Normal Mood/Affect, CN II-XII Intact, No Motor/Sensory Deficits, Oriented x 3 (unable to name the president, otherwise if fully oriented.) Back Exam: Normal Inspection. No: CVA Tenderness (R), CVA Tenderness (L) Extremities: Normal Inspection, Normal Range of Motion, Non-Tender, No Pedal Edema Psychiatric: Normal Affect, Normal Mood Skin Exam: Warm, Dry, Intact, Normal Color, No Rash Course - Vital Signs Text/Narrative:: Case discussed with Dr. Tomlinson of [facility] @ [facility]. Last Recorded V/S: Last Vital Signs Temp 36.4 C 02/27/18 18:29 Pulse 72 02/27/18 18:29 Resp 16 02/27/18 18:29 BP 133/79 02/27/18 18:29 Pulse Ox 95 02/27/18 18:29 - Orders/Labs/Meds Orders: Active Orders 24 hr Category Date Time Status Head wo Cont [CT] Stat Exams 02/27/18 18:47 Taken UA W/MICROSCOPIC [URIN] Stat Lab 02/27/18 19:33 Ordered Aspirin Med 02/27/18 20:23 Once 324 mg PO ONETIME ONE Labs: Laboratory Tests 02/27/18 02/27/18 02/27/18 Range/Units 18:47 18:47 19:33 WBC 6.6 (4.5-11.0) K/uL RBC 4.17 L (4.30-5.90) M/uL Hgb 13.7 (12.0-15.0) g/dL Hct 41.2 (40.0-54.0) % MCV 99 H (80-98) fL MCH 33 H (27-31) pg MCHC 33 (32-36) % Plt Count 183 (150-400) K/uL Sodium 138 L (140-148) mmol/L Potassium 4.3 (3.6-5.2) mmol/L Chloride 101 (100-108) mmol/L Carbon Dioxide 27 (21-32) mmol/L Anion Gap 14.3 H (5.0-14.0) mmol/L BUN 23 H D (7-18) mg/dL Creatinine 1.0 (0.8-1.3) mg/dL Est Cr Clr Drug Dosing 53.03 mL/min Estimated GFR (MDRD) > 60 (>60) Glucose 113 H (74-106) mg/dL Calcium 8.8 (8.5-10.1) mg/dL Troponin I < 0.017 (0.000-0.056) ng/mL Urine Color [place] Urine Appearance Clear Urine pH 6.0 (4.5-8.0) Ur Specific [place] 1.020 (1.008-1.030) Urine Protein Negative (NEGATIVE) mg/dL Urine Glucose (UA) Normal (NEGATIVE) mg/dL Urine Ketones Negative (NEGATIVE) mg/dL Urine Occult Blood Negative (NEGATIVE) Urine Nitrite Negative (NEGAITVE) Urine Bilirubin Small (NEGATIVE) Urine Urobilinogen 1 (NORMAL) mg/dL Ur Leukocyte Esterase Negative (NEGATIVE) Urine RBC 0-5 (0-5) Urine WBC Not seen (0-5) Ur Epithelial Cells Not seen Amorphous Sediment Few Urine Bacteria Not seen Urine Mucus Not seen - Radiology Interpretation CT Results Date: 02/27/18 Departure - Departure Time of Disposition: 20:40 Disposition: Refer to Observation Condition: Fair Clinical Impression: Delirium, Nonadherence to medication - Discharge Information *PRESCRIPTION DRUG MONITORING PROGRAM REVIEWED*: Not Applicable *COPY OF PRESCRIPTION DRUG MONITORING REPORT IN PATIENT RORY: Not Applicable Referrals: PCP,None [Primary Care Provider] - Forms: ED Department Discharge - My Orders Last 24 Hours: My Active Orders 02/27/18 18:47 Head wo Cont [CT] Stat 02/27/18 19:33 UA W/MICROSCOPIC [URIN] Stat 02/27/18 20:23 Aspirin 324 mg PO ONETIME ONE - Assessment/Plan Last 24 Hours: My Active Orders 02/27/18 18:47 Head wo Cont [CT] Stat 02/27/18 19:33 UA W/MICROSCOPIC [URIN] Stat 02/27/18 20:23 Aspirin 324 mg PO ONETIME ONE
[2018-02-27] MEDS ORDERED: Aspirin 81 MG Tab.Chew PO ONE (20:23)
--- NOTE | 2018-02-27 22:09 | PCM.HP ---
H&P History of Present Illness - General Date of Service: 02/27/18 Admit Problem/Dx: Admission Diagnosis/Problem Admission Diagnosis/Problem Delirium Source of Information: Patient, Family History Limitations: Reports: No Limitations - History of Present Illness Initial Comments - Free Text/Narative: - History of Present Illness 87 yo male was sent via EMS by family to the hospital apparently for acute confusion. Patient has been here in the recent past for comparison to today's condition. Fredy is fully alert here and has stable vital signs. His history is a bit rambling today, but not that different from the last time he was seen here. Family is reportedly on the way, but not yet here when patient is first seen. Family is now here and describes that Fredy forgot his meds at home and was away to [place] for an appt his had with ENT there. He did not take his medications for 3 days which included alprazolam 1 mg by mouth twice a day. He didn't sleep well for 2 nights due to missing his sleeping meds. On his way home he made a few driving mistakes which is not like him. The thought her was mumbling and repeating himself in the car on the way home from [place], but admits her hearing is not good. Tonight before coming in he was unable to write his own name and was talking nonsensically. These sx's are now gone in the ER. Patient reports for at least 15 years has had pulsatile tinnitus. He reports since he had his "episode" his tinnitus is completely gone. He reports his head is completely clear, it is the best he's felt in the past 15 years. His son and were in attendance report that he has had tinnitus for the past 15 years. He had surgery 2 to help resolve this without any success. He even wears hearing aids to help with this tinnitus. His son reports his dad was babbling and making funny sounds and noncoherent words and then this all spontaneously resolved and that is when he reported the tinnitus was gone. His reports this is a miracle. Onset of Symptoms: Reports: Sudden Duration of Symptoms: Reports: Resolved Prior to Arrival Location: Reports: Head Severity: Moderate Improves with: Reports: None Worsens with: Reports: None Associated Symptoms: Reports: No Other Symptoms - Related Data Allergies/Adverse Reactions: Allergies Allergy/AdvReac Type Severity Reaction Status Date / Time No Known Allergies Allergy Verified 01/24/18 11:49 Home Medications: Home Meds ALPRAZolam [Alprazolam] 1 mg PO BID PRN 01/14/18 [History] Albuterol Sulfate [Proair Hfa] 8.5 gm IH Q6HR 01/14/18 [History] Aspirin [Adult Low Dose Aspirin EC] 81 mg PO DAILY 01/14/18 [History] Brimonidine/Timolol [Combigan 0.2%/0.5% Ophth Soln] 1 drop TOP BID 01/14/18 [ History] Finasteride 5 mg PO DAILY 01/14/18 [History] Fluticasone Propionate [Flonase] 2 sprays NS DAILY 01/14/18 [History] Loratadine [Claritin] 10 mg PO DAILY 01/14/18 [History] QUEtiapine Fumarate [Quetiapine Fumarate] 75 mg PO BEDTIME 01/14/18 [History] Ubidecarenone [Coenzyme Q-10] 100 mg PO BID 01/14/18 [History] Benzonatate 100 mg PO TID PRN 01/21/18 [History] diphenhydrAMINE [Benadryl] 25 mg PO BEDTIME PRN 01/21/18 [History] Acetaminophen [Tylenol] 650 mg PO Q4H PRN #50 tablet 01/23/18 [Rx] Melatonin 10 mg PO BEDTIME 02/27/18 [History] Past Medical History HEENT History: Reports: Other (See Below) Other HEENT History: Tinnitus bilateral Cardiovascular History: Reports: High Cholesterol, Pacemaker Respiratory History: Reports: Asthma Gastrointestinal History: Reports: Colon Polyp, Other (See Below) Other Gastrointestinal History: gluten-sensitive enteropathy Genitourinary History: Reports: BPH, Prostate Disorder Neurological History: Reports: Other (See Below) Other Neuro History: hydrocephalus. memory change Psychiatric History: Reports: Anxiety, Depression, OCD Endocrine/Metabolic History: Reports: Other (See Below) Other Endocrine/Metabolic History: hyperglycemia - Infectious Disease History Infectious Disease History: Reports: Chicken Pox Other Infectious Disease History: Lymes, Anaplasmosis - Past Surgical History HEENT Surgical History: Reports: Tonsillectomy Cardiovascular Surgical History: Reports: Pacer Respiratory Surgical History: Reports: None GI Surgical History: Reports: Appendectomy, Colonoscopy Neurological Surgical History: Reports: Other (See Below) Other Neurological Surgeries/Procedures: S/P ventriculoperitoneal shunt Social & Family History - Family History Family Medical History: Noncontributory - Tobacco Use Smoking Status *Q: Never Smoker Second Hand Smoke Exposure: Yes - Caffeine Use Caffeine Use: Reports: Coffee - Recreational Drug Use Recreational Drug Use: No - Living Situation & Occupation Living situation: Reports: Occupation: Retired (Lives with Berenice in their [place] near [facility]. They have a son and daughter.) H&P Review of Systems - Review of Systems: Review Of Systems: See Below General: Reports: No Symptoms, Other (Reports all symptoms have resolved feels great.) HEENT: Reports: Glasses Pulmonary: Reports: No Symptoms Cardiovascular: Reports: No Symptoms Gastrointestinal: Reports: No Symptoms Genitourinary: Reports: No Symptoms Musculoskeletal: Reports: No Symptoms Skin: Reports: No Symptoms Psychiatric: Reports: No Symptoms Neurological: Reports: No Symptoms Hematologic/Lymphatic: Reports: No Symptoms Immunologic: Reports: No Symptoms Exam - Exam Exam: See Below - Vital Signs Vital Signs: Last Vital Signs Temp 36.4 C 02/27/18 18:29 Pulse 72 02/27/18 18:29 Resp 16 02/27/18 18:29 BP 133/79 02/27/18 18:29 Pulse Ox 95 02/27/18 18:29 Weight: 79.379 kg - Exam General: Alert, Oriented, Cooperative HEENT: PERRLA, Hearing Intact, Mucosa Moist & [place], Nares Patent, Normal Nasal Septum, Posterior Pharynx Clear, Conjunctiva Clear, EOMI, EACs Clear, TMs Clear Neck: Supple, Trachea Midline, 2 Lungs: Clear to Auscultation, Normal Respiratory Effort Cardiovascular: Regular Rate, Regular Rhythm, Normal S1, Normal S2 GI/Abdominal Exam: Normal Bowel Sounds, Soft, Non-Tender, No Organomegaly, No Distention, No Abnormal Bruit, No Mass, Pelvis Stable (Male) Exam: Deferred Rectal (Males) Exam: Deferred Back Exam: Normal Inspection, Full Range of Motion, NT Extremities: Normal Inspection, Normal Range of Motion, Non-Tender, No Pedal Edema, Normal Capillary Refill Peripheral Pulses: 2+: Dorsalis Pedis (L), Dorsalis Pedis (R) Skin: Warm, Dry, Intact Neurological: Cranial Nerves Intact, Reflexes Equal Bilateral, Strength Equal Bilateral Neuro Extensive - Mental Status: Alert, Oriented x3, Normal Mood/Affect, Normal Cognition Neuro Extensive - Motor, Sensory, Reflexes: CN II-XII Intact, Normal Gait, Normal Reflexes Psychiatric: Alert, Normal Affect, Normal Mood - Patient Data Lab Results Last 24 hrs: Laboratory Results - last 24 hr 02/27/18 02/27/18 02/27/18 Range/Units 18:47 18:47 19:33 WBC 6.6 (4.5-11.0) K/uL RBC 4.17 L (4.30-5.90) M/uL Hgb 13.7 (12.0-15.0) g/dL Hct 41.2 (40.0-54.0) % MCV 99 H (80-98) fL MCH 33 H (27-31) pg MCHC 33 (32-36) % Plt Count 183 (150-400) K/uL Sodium 138 L (140-148) mmol/L Potassium 4.3 (3.6-5.2) mmol/L Chloride 101 (100-108) mmol/L Carbon Dioxide 27 (21-32) mmol/L Anion Gap 14.3 H (5.0-14.0) mmol/L BUN 23 H D (7-18) mg/dL Creatinine 1.0 (0.8-1.3) mg/dL Est Cr Clr Drug Dosing 53.03 mL/min Estimated GFR (MDRD) > 60 (>60) Glucose 113 H (74-106) mg/dL Calcium 8.8 (8.5-10.1) mg/dL Troponin I < 0.017 (0.000-0.056) ng/mL Urine Color [place] Urine Appearance Clear Urine pH 6.0 (4.5-8.0) Ur Specific [place] 1.020 (1.008-1.030) Urine Protein Negative (NEGATIVE) mg/dL Urine Glucose (UA) Normal (NEGATIVE) mg/dL Urine Ketones Negative (NEGATIVE) mg/dL Urine Occult Blood Negative (NEGATIVE) Urine Nitrite Negative (NEGAITVE) Urine Bilirubin Small (NEGATIVE) Urine Urobilinogen 1 (NORMAL) mg/dL Ur Leukocyte Esterase Negative (NEGATIVE) Urine RBC 0-5 (0-5) Urine WBC Not seen (0-5) Ur Epithelial Cells Not seen Amorphous Sediment Few Urine Bacteria Not seen Urine Mucus Not seen Result Diagrams: 02/27/18 18:47 02/27/18 18:47 - Problem List (1) Delirium SNOMED Code(s): 8656968 ICD Code: R41.0 - DISORIENTATION, UNSPECIFIED Status: Acute Priority: High Current Visit: Yes Problem List Initiated/Reviewed/Updated: Yes Orders Last 24hrs: Active Orders 24 hr Category Date Time Status Patient Status Manage Transfer [TRANSFER] Routine ADT 02/27/18 21:37 Active Head wo Cont [CT] Stat Exams 02/27/18 18:47 Taken UA W/MICROSCOPIC [URIN] Stat Lab 02/27/18 19:33 Ordered Resuscitation Status Routine Resus Stat 02/27/18 21:48 Ordered Assessment/Plan Comment:: ASSESSEMENT: history of present illness: 87 yo male was sent via EMS by family to the hospital apparently for acute confusion. Patient has been here in the recent past for comparison to today's condition. Fredy is fully alert here and has stable vital signs. His history is a bit rambling today, but not that different from the last time he was seen here. Family is reportedly on the way, but not yet here when patient is first seen. Family is now here and describes that Fredy forgot his meds at home and was away to [place] for an appt his had with ENT there. He did not take his medications for 3 days which included alprazolam 1 mg by mouth twice a day. He didn't sleep well for 2 nights due to missing his sleeping meds. On his way home he made a few driving mistakes which is not like him. The thought her was mumbling and repeating himself in the car on the way home from [place], but admits her hearing is not good. Tonight before coming in he was unable to write his own name and was talking nonsensically. These sx's are now gone in the ER. Patient reports for at least 15 years has had pulsatile tinnitus. He reports since he had his "episode" his tinnitus is completely gone. He reports his head is completely clear, it is the best he's felt in the past 15 years. His son and were in attendance report that he has had tinnitus for the past 15 years. He had surgery 2 to help resolve this without any success. He even wears hearing aids to help with this tinnitus. His son reports his dad was babbling and making funny sounds and noncoherent words and then this all spontaneously resolved and that is when he reported the tinnitus was gone. His reports this is a miracle. labs done is ER , CBC, CMP; normal. Urine with micro; -WBC, -nitrate, - leukocytes Imaging; CT Head- negative Plan -Admit Observation 2 North for further monitoring Delirium , nonadherence to medication -re-start tonight alprazolam 1 mg by mouth twice a day -Neuro checks every 2-4 hours during the night then every shift -Saline lock -Home medications ordered. -Advise to notify nurses of any fever, chills, worsen pain or other symptoms -And a.m. labs: CBC, BMP Maintenance issues -Orders home meds: ordered -Nutrition: Regular diet -Whitehead catheter not indicated at this time -DVT: Compression stockings -GI Prophalaxis; Protonix 40mg daily CODE STATUS: Full Admission status: Admit to Observation -I expect this patient to stay less than 24 hours, not to exceed 96 hours for evaluation and management of this problem. Disposition: home with family Primary care provider: [facility] Hospitalist:
[2018-02-27] MEDS ORDERED: Docusate Sodium 100 MG Cap PO PRN (22:21)
[2018-02-27] MEDS ORDERED: UBIDECARENONE 100 MG PO SCH (22:21)
[2018-02-27] MEDS ORDERED: Albuterol 0.083% 2.5 MG/3 ML Neb Soln NEB PRN (22:21)
[2018-02-27] MEDS ORDERED: Non-Formulary Medication 1 Each (Acetaminophen [Tylenol] 650 MG) PO PRN (22:21)
[2018-02-27] MEDS ORDERED: Ibuprofen 600 MG Tab PO PRN (22:21)
[2018-02-27] MEDS ORDERED: LORazepam 2 MG/ML SDV IV PRN (22:21)
[2018-02-27] MEDS ORDERED: Morphine 2 MG/ML Syringe IVPUSH PRN (22:21)
[2018-02-27] MEDS ORDERED: Acetaminophen 325 MG Tab PO PRN (22:21)
[2018-02-27] MEDS ORDERED: Ondansetron 4 MG Tab.DIS PO PRN (22:21)
[2018-02-27] MEDS ORDERED: diphenhydrAMINE 25 MG Cap PO PRN (22:21)
[2018-02-27] MEDS ORDERED: Ondansetron 4 MG/2 ML SDV IV PRN (22:21)
[2018-02-27] MEDS ORDERED: oxyCODONE 5 MG Tab PO PRN (22:21)
[2018-02-27] MEDS ORDERED: Albuterol 8 GM Inhaler INH PRN (22:33)
[2018-02-27] MEDS ORDERED: QUEtiapine 25 MG Tab PO SCH (22:45)
[2018-02-27] MEDS: ALPRAZolam 0.5 MG Tab PO SCH (23:07)
[2018-02-27] MEDS: Brimonidine 0.2% Ophth Soln 5 ML Bottle EYEBOTH SCH (23:07)
[2018-02-28 07:28] VITALS: BP 144/64
[2018-02-28] MEDS ORDERED: BENZONATATE 100 MG PO PRN (09:00)
[2018-02-28] MEDS ORDERED: Finasteride 5 MG Tab (PTOM) PO SCH (09:00)
[2018-02-28] MEDS ORDERED: Timolol Maleate 0.5% Ophth Soln 5 ML (PTOM) EYEBOTH SCH (09:00)
[2018-02-28] MEDS ORDERED: Fluticasone Propionate Nasal Spray 16 GM Bottle NASBOTH SCH (09:00)
[2018-02-28] MEDS ORDERED: Loratadine 10 MG Tab PO SCH (09:00)
[2018-02-28] MEDS: Aspirin 81 MG Tab.EC PO SCH ×2 (10:17→10:21)
[2018-02-28] MEDS: ALPRAZolam 0.5 MG Tab PO SCH (10:20)
[2018-02-28] MEDS: Brimonidine 0.2% Ophth Soln 5 ML Bottle EYEBOTH SCH (13:45)
--- NOTE | 2018-02-28 13:51 | CT ---
Head wo Cont HISTORY: Acute confusion. Weakness. COMPARISON: Previous day. FINDINGS:There is central and cortical cerebral atrophy consistent with age. The right ventriculostom y shunt is stable. There is no hemorrhage, mass effect, or edema. Low attenuation is demonstrated thr oughout the deep periventricular white matter. 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 The brainstem and posterior fossa are unremarkable. The o rbital structures demonstrate no abnormalities. The sinuses demonstrate normal aeration. IMPRESSION: 1. Stable exam. No acute intracranial changes.
--- NOTE | 2018-02-28 14:15 | PCM.DCSUM1 ---
Discharge Summary - Hospital Course Brief History: 87-year-old male with recent pacemaker placement for sick sinus syndrome who presented with acute confusional state. He was admitted for observation. Diagnosis: Stroke: No - Discharge Data Discharge Date: 02/28/18 Discharge Disposition: Home, Self-Care 01 Condition: Good - Discharge Diagnosis/Problem(s) (1) Acute hyperactive delirium due to multiple etiologies SNOMED Code(s): 429297554, [id number] ICD Code: F05 - DELIRIUM DUE TO KNOWN PHYSIOLOGICAL CONDITION Status: Acute - Patient Summary/Data Consults: Consultations 02/27/18 22:21 OT Evaluation and Treatment [CONS] Routine Please Evaluate and Treat. OT Reason for Consult: Discharge Planning This query below is only for informational purposes and is not editable. Admission Diagnosis/Problem: Delirium Hospital Course: Fredy presented to the emergency room yesterday evening with an acute confusional state. Workup in the emergency room included laboratory testing, urinalysis and a noncontrast head CT. All of these tests were normal and the patient did seem to improve in the emergency room though he was not back to baseline. He was admitted for observation. There were no acute events overnight following admission. At the time of my evaluation the morning after admission he reports that he is feeling well. Family believes that he is back to his baseline at this time. He continues to speak about the events of last night and reports extreme clarity though family reports it was very obvious that he was extremely confused and not making any sense. He is able to recall the events of last night with good accuracy. I did repeat a head CT with contrast and this did not show any evidence for stroke, bleed or infection. He has not had any fevers. Vital signs have been stable. I suspect that the episode last night was probably a combination of sleep deprivation as well as not having his quetiapine and/or alprazolam for the 2 nights prior. He seems to be back to his usual self at this time. His family is comfortable with him coming home at this point. They will be following up as needed if he does not continue to improve. - Patient Instructions Diet: Regular Diet as Tolerated Activity: As Tolerated Showering/Bathing: May Shower Notify Provider of: Fever, Increased Pain, Nausea and/or Vomiting Other/Special Instructions: 1. You were in the hospital for observation after an episode of apparent confusion. I suspect the episode was caused by a combination of sleep deprivation and missed doses of medications. We performed 2 CT scans of the head which both were normal. Laboratory workup and workup for infection were normal as well. I I recommend that you take it easy for the remainder of the day and get a good night sleep tonight. Please try to get back to your usual routine. You may contact me at the hospital if you have any difficulty over the next several days. 2. Please continue your usual home medications as previously prescribed. 3. Please seek medical attention if you develop fever greater than 101, you have severe headache or significant confusion. - Discharge Plan *PRESCRIPTION DRUG MONITORING PROGRAM REVIEWED*: Not Applicable *COPY OF PRESCRIPTION DRUG MONITORING REPORT IN PATIENT RORY: Not Applicable Home Medications: Home Meds ALPRAZolam [Alprazolam] 1 mg PO BID PRN 01/14/18 [History] Albuterol Sulfate [Proair Hfa] 8.5 gm IH Q6HR 01/14/18 [History] Aspirin [Adult Low Dose Aspirin EC] 81 mg PO DAILY 01/14/18 [History] Brimonidine/Timolol [Combigan 0.2%/0.5% Ophth Soln] 1 drop TOP BID 01/14/18 [ History] Finasteride 5 mg PO DAILY 01/14/18 [History] Fluticasone Propionate [Flonase] 2 sprays NS DAILY 01/14/18 [History] Loratadine [Claritin] 10 mg PO DAILY 01/14/18 [History] QUEtiapine Fumarate [Quetiapine Fumarate] 75 mg PO BEDTIME 01/14/18 [History] Ubidecarenone [Coenzyme Q-10] 100 mg PO BID 01/14/18 [History] Benzonatate 100 mg PO TID PRN 01/21/18 [History] diphenhydrAMINE [Benadryl] 25 mg PO BEDTIME PRN 01/21/18 [History] Acetaminophen [Tylenol] 650 mg PO Q4H PRN #50 tablet 01/23/18 [Rx] Melatonin 10 mg PO BEDTIME 02/27/18 [History] Patient Handouts: Delirium Referrals: PCP,None [Primary Care Provider] - - Discharge Summary/Plan Comment DC Time >30 min.: No - Patient Data Vitals - Most Recent: Last Vital Signs Temp 35.7 C 02/28/18 07:27 Pulse 73 02/28/18 07:27 Resp 16 02/28/18 07:27 BP 144/64 H 02/28/18 07:27 Pulse Ox 97 02/28/18 07:27 Weight - Most Recent: 79.379 kg I&O - Last 24 hours: Intake & Output 02/27/18 02/28/18 02/28/18 22:59 06:59 14:59 Intake Total 400 Balance 400 Lab Results - Last 24 hrs: Laboratory Results - last 24 hr 02/27/18 02/27/18 02/27/18 Range/Units 18:47 18:47 19:33 WBC 6.6 (4.5-11.0) K/uL RBC 4.17 L (4.30-5.90) M/uL Hgb 13.7 (12.0-15.0) g/dL Hct 41.2 (40.0-54.0) % MCV 99 H (80-98) fL MCH 33 H (27-31) pg MCHC 33 (32-36) % Plt Count 183 (150-400) K/uL Neut % (Auto) (36-66) % Lymph % (Auto) (24-44) % [place] % (Auto) (2-6) % Eos % (Auto) (2-4) % Baso % (Auto) (0-1) % Sodium 138 L (140-148) mmol/L Potassium 4.3 (3.6-5.2) mmol/L Chloride 101 (100-108) mmol/L Carbon Dioxide 27 (21-32) mmol/L Anion Gap 14.3 H (5.0-14.0) mmol/L BUN 23 H D (7-18) mg/dL Creatinine 1.0 (0.8-1.3) mg/dL Est Cr Clr Drug Dosing 53.03 mL/min Estimated GFR (MDRD) > 60 (>60) Glucose 113 H (74-106) mg/dL Calcium 8.8 (8.5-10.1) mg/dL Troponin I < 0.017 (0.000-0.056) ng/mL Urine Color Simms Urine Appearance Clear Urine pH 6.0 (4.5-8.0) Ur Specific [place] 1.020 (1.008-1.030) Urine Protein Negative (NEGATIVE) mg/dL Urine Glucose (UA) Normal (NEGATIVE) mg/dL Urine Ketones Negative (NEGATIVE) mg/dL Urine Occult Blood Negative (NEGATIVE) Urine Nitrite Negative (NEGAITVE) Urine Bilirubin Small (NEGATIVE) Urine Urobilinogen 1 (NORMAL) mg/dL Ur Leukocyte Esterase Negative (NEGATIVE) Urine RBC 0-5 (0-5) Urine WBC Not seen (0-5) Ur Epithelial Cells Not seen Amorphous Sediment Few Urine Bacteria Not seen Urine Mucus Not seen 02/28/18 02/28/18 Range/Units 04:40 04:40 WBC 5.1 (4.5-11.0) K/uL RBC 3.63 L (4.30-5.90) M/uL Hgb 12.2 (12.0-15.0) g/dL Hct 36.4 L (40.0-54.0) % MCV 100 H (80-98) fL MCH 34 H (27-31) pg MCHC 34 (32-36) % Plt Count 163 (150-400) K/uL Neut % (Auto) 43 (36-66) % Lymph % (Auto) 39 (24-44) % [place] % (Auto) 16 H (2-6) % Eos % (Auto) 2 (2-4) % Baso % (Auto) 0 (0-1) % Sodium 141 (140-148) mmol/L Potassium 3.7 (3.6-5.2) mmol/L Chloride 104 (100-108) mmol/L Carbon Dioxide 31 (21-32) mmol/L Anion Gap 6.4 (5.0-14.0) mmol/L BUN 21 H (7-18) mg/dL Creatinine 0.9 (0.8-1.3) mg/dL Est Cr Clr Drug Dosing 57.00 mL/min Estimated GFR (MDRD) > 60 (>60) Glucose 89 (74-106) mg/dL Calcium 8.4 L (8.5-10.1) mg/dL Troponin I (0.000-0.056) ng/mL Urine Color Urine Appearance Urine pH (4.5-8.0) Ur Specific [place] (1.008-1.030) Urine Protein (NEGATIVE) mg/dL Urine Glucose (UA) (NEGATIVE) mg/dL Urine Ketones (NEGATIVE) mg/dL Urine Occult Blood (NEGATIVE) Urine Nitrite (NEGAITVE) Urine Bilirubin (NEGATIVE) Urine Urobilinogen (NORMAL) mg/dL Ur Leukocyte Esterase (NEGATIVE) Urine RBC (0-5) Urine WBC (0-5) Ur Epithelial Cells Amorphous Sediment Urine Bacteria Urine Mucus Med Orders - Current: Current Medications Acetaminophen (Tylenol) 650 mg PO Q4H PRN PRN Reason: Pain (Mild 1-3)/fever Albuterol (Proventil Neb Soln) 2.5 mg NEB Q4H PRN PRN Reason: Shortness Of Breath/wheezing Albuterol (Ventolin Hfa) 1 - 2 gm INH Q6H PRN PRN Reason: Dyspnea Alprazolam (Xanax) 1 mg PO BEDTIME [facility] Aspirin (Halfprin) 81 mg PO BEDTIME [facility] Benzonatate (Tessalon Perles) 100 mg PO TID PRN PRN Reason: COUGH Brimonidine Tartrate (Alphagan 0.2% Ophth Soln) 0 ml EYEBOTH BID [facility] Diphenhydramine HCl (Benadryl) 25 mg PO BEDTIME PRN PRN Reason: Sleep Docusate Sodium (Colace) 100 mg PO BID PRN PRN Reason: Constipation Finasteride (Proscar) 5 mg PO DAILY [facility] Last Admin: 02/28/18 10:17 Dose: 5 mg Fluticasone Propionate (Flonase) 0 gm NASBOTH DAILY [facility] Last Admin: 02/28/18 10:18 Dose: Not Given Ibuprofen (Motrin) 600 mg PO Q6H PRN PRN Reason: Pain/Fever Loratadine (Claritin) 10 mg PO DAILY [facility] Last Admin: 02/28/18 10:17 Dose: 10 mg Lorazepam (Ativan) 1 mg IV Q6H PRN PRN Reason: Nausea/Vomiting Melatonin (Melatonin) 9 mg PO BEDTIME [facility] Morphine Sulfate (Morphine) 2 mg IVPUSH Q2H PRN PRN Reason: Pain (severe 7-10) Ubidecarenone [ Coenzyme Q-10] 100 Mg-Ptom 100 mg PO BID [facility] Last Admin: 02/28/18 10:24 Dose: Not Given Ondansetron HCl (Zofran Odt) 4 mg PO Q6H PRN PRN Reason: Nausea able to take PO Ondansetron HCl (Zofran) 4 mg IV Q4H PRN PRN Reason: Nausea/Vomiting Oxycodone HCl (Oxycodone) 5 mg PO Q4H PRN PRN Reason: Pain (moderate 4-6) Quetiapine Fumarate (Seroquel) 75 mg PO BEDTIME [facility] Timolol Maleate (Timoptic 0.5% Ophth Soln) 0 ml EYEBOTH BID [facility] Last Admin: 02/28/18 13:45 Dose: Not Given Discontinued Medications Alprazolam (Xanax) 1 mg PO BID [facility] Last Admin: 02/28/18 10:20 Dose: Not Given Aspirin (Aspirin) 324 mg PO ONETIME ONE Stop: 02/27/18 20:24 Last Admin: 02/27/18 20:36 Dose: 324 mg Aspirin (Halfprin) 81 mg PO DAILY [facility] Last Admin: 02/28/18 10:21 Dose: Not Given Brimonidine Tartrate (Alphagan 0.2% Ophth Soln) 0 ml EYEBOTH BID [facility] Last Admin: 02/28/18 13:45 Dose: Not Given Non-Formulary Medication (Acetaminophen [Tylenol]) 650 mg PO Q4H PRN PRN Reason: LESSER PAIN Quetiapine Fumarate (Seroquel) 75 mg PO BEDTIME [facility] Last Admin: 02/27/18 23:07 Dose: 75 mg - Exam Quality Assessment: Denies: Supplemental Oxygen General: Reports: Alert, Oriented, Cooperative, No Acute Distress Lungs: Reports: Normal Respiratory Effort GI/Abdominal Exam: No Distention Extremities: No Pedal Edema Neurological: Reports: No New Focal Deficit Psy/Mental Status: Reports: Alert, Normal Affect
[2018-02-28] MEDS ORDERED: Melatonin 3 MG Tab PO SCH (21:00)
[2018-02-28] MEDS ORDERED: BRIMONIDINE 0.2% EYEBOTH SCH ×2 (21:00)
[2018-02-28] MEDS ORDERED: QUETIAPINE 25 MG PO SCH (21:00)
[2018-02-28] MEDS ORDERED: Aspirin 81 MG Tab.EC PO SCH (21:00)
[2018-02-28] MEDS ORDERED: ALPRAZolam 0.5 MG Tab PO SCH (21:00)
== END 2018-02-28 15:15 | disposition home or self-care (01) ==
LOC: JP.ED 18:16 → JP.MS 21:37
PROVIDERS: ADMIT Internal Medicine; ATTEND Internal Medicine
DX: R41.0 Disorientation, unspecified (principal); E78.00 Pure hypercholesterolemia, unspecified; E83.52 Hypercalcemia; J45.909 Unspecified asthma, uncomplicated; K90.0 Celiac disease; N40.0 Benign prostatic hyperplasia without lower urinary tract symptoms; F41.9 Anxiety disorder, unspecified; F32.9 Major depressive disorder, single episode, unspecified; F42.9 Obsessive-compulsive disorder, unspecified; Z79.82 Long term (current) use of aspirin; Z79.899 Other long term (current) drug therapy
CPT/HCPCS: 36415; 70450; 80048; 81001; 84484; 85025; 85027; 99285; A9270; G0378

== ENCOUNTER 2020-08-10 12:51 | Emergency (ER) | payer MEDICARE, BC ==
--- NOTE | 2020-08-10 13:03 | EDM.PDOC ---
ED HPI GENERAL MEDICAL PROBLEM - General Chief Complaint: Respiratory Problem Stated Complaint: WEAK Time Seen by Provider: 08/10/20 12:51 Source of Information: Reports: EMS, Family History Limitations: Reports: Altered Mental Status, Physical Impairment - History of Present Illness INITIAL COMMENTS - FREE TEXT/NARRATIVE: 89-year-old male who apparently has unresponsive episodes on a fairly regular basis, had another episode today but it was very persistent and lasted almost 2 hours and he appeared to be becoming more unresponsive and hypoxic so the ambulance was called. When EMS arrived his O2 sats were in the 60s and his feet were dusky and he was unresponsive. He is a DNR and his refused to have him transported to another hospital as initially air care was called. We have no beds here at this hospital. - Related Data Allergies Allergy/AdvReac Type Severity Reaction Status Date / Time No Known Allergies Allergy Verified 01/24/18 11:49 Home Meds: Home Meds Albuterol Sulfate [Proair Hfa] 8.5 gm IH Q6HR 01/14/18 [History] Aspirin [Adult Low Dose Aspirin EC] 81 mg PO DAILY 01/14/18 [History] Brimonidine/Timolol [Combigan 0.2%/0.5% Ophth Soln] 1 drop TOP BID 01/14/18 [History] Finasteride 5 mg PO DAILY 01/14/18 [History] QUEtiapine Fumarate [Quetiapine Fumarate] 75 mg PO BEDTIME 01/14/18 [History] busPIRone [Buspar] 5 mg PO TID 08/10/20 [History] Past Medical History HEENT History: Reports: Other (See Below) Other HEENT History: Tinnitus bilateral Cardiovascular History: Reports: High Cholesterol, Pacemaker Respiratory History: Reports: Asthma Gastrointestinal History: Reports: Colon Polyp, Other (See Below) Other Gastrointestinal History: gluten-sensitive enteropathy Genitourinary History: Reports: BPH, Prostate Disorder Neurological History: Reports: Other (See Below) Other Neuro History: hydrocephalus. memory change Psychiatric History: Reports: Anxiety, Depression, OCD Endocrine/Metabolic History: Reports: Other (See Below) Other Endocrine/Metabolic History: hyperglycemia - Infectious Disease History Infectious Disease History: Reports: Chicken Pox Other Infectious Disease History: Lymes, Anaplasmosis - Past Surgical History HEENT Surgical History: Reports: Tonsillectomy Cardiovascular Surgical History: Reports: Pacer Respiratory Surgical History: Reports: None GI Surgical History: Reports: Appendectomy, Colonoscopy Neurological Surgical History: Reports: Other (See Below) Other Neurological Surgeries/Procedures: S/P ventriculoperitoneal shunt Social & Family History - Family History Family Medical History: No Pertinent Family History - Caffeine Use Caffeine Use: Reports: Coffee - Living Situation & Occupation Living situation: Reports: Occupation: Retired (Lives with Berenice in their [place] near [facility]. They have a son and daughter.) ED ROS GENERAL - Review of Systems Review Of Systems: See Below (Review of systems unobtainable as the patient is unresponsive) ED EXAM, GENERAL - Physical Exam Exam: See Below Exam Limited By: Other (Hypoxic and unresponsive initially) General Appearance: Obtunded Eye Exam: Bilateral Eye: PERRL Head: Atraumatic Respiratory/Chest: Wheezing (Some expiratory wheezing diffusely) Cardiovascular: Regular Rate, Rhythm GI/Abdominal: Non-Tender Extremities: Other (Lower extremities are discolored, somewhat cyanotic and cool) Neurological: Inattentive, Slow to Respond Course - Vital Signs Last Recorded V/S: Last Vital Signs Temp 96.0 F L 08/10/20 12:54 Pulse 62 08/10/20 14:58 Resp 20 08/10/20 14:58 BP 104/56 L 08/10/20 14:58 Pulse Ox 89 L 08/10/20 14:58 - Orders/Labs/Meds Labs: Laboratory Tests 08/10/20 08/10/20 08/10/20 Range/Units 12:59 12:59 13:00 WBC 7.6 (4.5-11.0) K/uL RBC 3.72 L (4.30-5.90) M/uL Hgb 11.7 L (12.0-15.0) g/dL Hct 37.0 L (40.0-54.0) % MCV 100 H (80-98) fL MCH 32 H (27-31) pg MCHC 32 (32-36) % Plt Count 142 L (150-400) K/uL Neut % (Auto) 63 (36-66) % Lymph % (Auto) 24 (24-44) % [place] % (Auto) 11 H (2-6) % Eos % (Auto) 3 (2-4) % Baso % (Auto) 0 (0-1) % Sodium 140 (140-148) mmol/L Potassium 4.6 (3.6-5.2) mmol/L Chloride 106 (100-108) mmol/L Carbon Dioxide 28 (21-32) mmol/L Anion Gap 5.7 (5.0-14.0) mmol/L BUN 24 H (7-18) mg/dL Creatinine 1.3 (0.8-1.3) mg/dL Est Cr Clr Drug Dosing 42.28 mL/min Estimated GFR (MDRD) 52 L (>60) Glucose 150 H (74-106) mg/dL Calcium 8.7 (8.5-10.1) mg/dL Troponin I < 0.017 (0.000-0.056) ng/mL - Re-Assessments/Exams Free Text/Narrative Re-Assessment/Exam: 08/10/20 15:56 Patient was given a DuoNeb, a portable chest x-ray was obtained, CBC BMP and troponin were obtained. Troponin was normal, portable chest x-ray looked clear. With supplemental oxygen the patient slowly improved and returned to baseline. Hospice was consulted and will set up home care starting tomorrow as the patient wants no further treatment and did not want to be transferred in the first place. Departure - Departure Time of Disposition: 15:57 Disposition: Home, Self-Care 01 Clinical Impression: Respiratory distress, Episode of unresponsiveness COPD (chronic obstructive pulmonary disease) Qualifiers: COPD type: unspecified COPD Qualified Code(s): J44.9 - Chronic obstructive pulmonary disease, unspecified - Discharge Information Instructions: Shortness of Breath, Adult, [id number] Referrals: Rashad Durham MD [Primary Care Provider] - Forms: ED Department Discharge Care Plan Goals: Follow hospice care recommendations as discussed, continue any regular medications. Sepsis Event Note (ED) - Evaluation Sepsis Screening Result: No Definite Risk - Focused Exam Vital Signs: Vital Signs Temp Pulse Resp BP Pulse Ox 08/10/20 14:58 62 20 104/56 L 89 L 08/10/20 13:11 65 20 89/47 L 93 L 08/10/20 12:54 96.0 F L 75 27 H 90/49 L 88 L
--- NOTE | 2020-08-10 13:15 | CR ---
CHEST: Portable 08/10/2020 at 12:53 PM CLINICAL HISTORY:Hypoxic COMPARISON:2012 FINDINGS: There is less than optimal inspiration which exaggerates heart size and pulmonary markings. Patient has a permanent cardiac pacer. 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 No infiltrates are seen. Impression: A suboptimal inspiration exaggerates lung markings. Borderline cardiomegaly Permanent cardiac pacer No acute cardiopulmonary process
[2020-08-10 14:59] VITALS: BP 104/56; PULSE 62
== END 2020-08-10 16:19 | disposition home or self-care (01) ==
LOC: JP.ED 12:51
DX: J44.9 Chronic obstructive pulmonary disease, unspecified (principal); R06.03 Acute respiratory distress; R40.1 Stupor; Z79.82 Long term (current) use of aspirin; Z79.899 Other long term (current) drug therapy
CPT/HCPCS: 36415; 71045; 71045-26; 80048; 84484; 85025; 99284; 99284-25